=== PATIENT | female | born 1985 | race Caucasian/White ===

== ENCOUNTER 2018-11-26 13:30 | Inpatient (IN) | payer OTHER ==
[2018-12-01 15:01] VITALS: BMI 43.0
[2018-12-03] MEDS ORDERED: BUPIVACAINE HCL/PF 0.5% (5MG/ML) 10 ML VIAL ONE (07:23)
[2018-12-03] MEDS ORDERED: MIDAZOLAM HCL 2 MG/2 ML SINGLE DOSE VIAL ONE ×3 (07:37→07:45)
[2018-12-03] MEDS ORDERED: DEXAMETHASONE SOD PHOSPHATE/PF 10 MG/ML SDV ONE (07:38)
[2018-12-03] MEDS ORDERED: BUPIVACAINE HCL/PF 0.25% (2.5MG/ML) 10 ML VIAL ONE (07:38)
--- NOTE | 2018-12-03 07:43 | HP ---
History & Physical Update - History History: No Change - Physical Physical: No Change - Assessment Assessment: No Change - Plan Plan: No Change (Full H&P in chart from 11/29/18)
[2018-12-03] MEDS ORDERED: ceFAZolin SODIUM 1 GM VIAL ONE (07:44)
[2018-12-03] MEDS ORDERED: fentaNYL CITRATE 250 MCG/5 ML VIAL ONE (07:44)
[2018-12-03] MEDS ORDERED: ROCURONIUM BROMIDE 50 MG/5 ML VIAL ONE ×2 (07:45→09:01)
[2018-12-03] MEDS ORDERED: SUCCINYLCHOLINE CHLORIDE 200 MG/10 ML VIAL ONE (07:45)
[2018-12-03] MEDS ORDERED: PROPOFOL 20 ML ONE ×2 (07:45)
[2018-12-03] MEDS ORDERED: ONDANSETRON 4 MG/2 ML VIAL IVPUSH PRN ×2 (08:09→10:14)
[2018-12-03] MEDS ORDERED: LACTATED RINGERS SOLUTION 1,000 ML IV SCH (08:15)
[2018-12-03] MEDS ORDERED: ceFAZolin SODIUM 1 GM VIAL IVPB ONE (08:20)
[2018-12-03] MEDS ORDERED: NEOSTIGMINE METHYLSULFATE 0.5 MG/ML - 10 ML MDV ONE (10:06)
[2018-12-03] MEDS ORDERED: GLYCOPYRROLATE 0.2 MG/1 ML VIAL ONE (10:06)
[2018-12-03] MEDS ORDERED: BUPIVACAINE HCL/PF (5 MG/ML) 30 ML VIAL IJ ONE (10:08)
--- NOTE | 2018-12-03 10:20 | OP ---
Operative Note - Note: Operative Date: 12/03/18 Pre-Operative Diagnosis: Morbid Obesity. Asthma Operation: Laparoscopic Vertical SLeeve Gastrectomy. Diagnostic Laparoscopy Findings: Sleeve Gastrectomy performed with #[address] along lesser curve of stomach Post-Operative Diagnosis: Same as Pre-op Surgeon: Venu Trejo Hvac Specialist: Robby Celaya Anesthesia: General Specimens Removed: Greater curve of stomach Estimated Blood Loss (mls): 50 Operative Report Dictated: Yes
[2018-12-03] MEDS: SODIUM CHLORIDE 1,000 ML IV SCH ×2 (10:30→18:12)
[2018-12-03] MEDS ORDERED: METOCLOPRAMIDE HCL INJECTION 10 MG/2 ML VIAL IVPUSH SCH (10:30)
--- NOTE | 2018-12-03 10:45 | SURG ---
Surgery Supervisor [employer] Note Supervisor [employer]: Robby Celaya PA-C Date of Service: 12/03/18 Diagnosis: Morbid obesity due to excess calories Procedure: Laproscopic sleeve gastrectomy I was present for the entirety of the operative procedure. For further detail, please refer to operative report. Visit type - Case Type Case Type: Scheduled - Emergency Emergency Visit: No - New patient This patient is new to me today: Yes Date on this admission: 12/03/18
--- NOTE | 2018-12-03 11:06 | OP ---
DATE OF OPERATION: 12/03/2018 PREOPERATIVE DIAGNOSIS: 1. Morbid obesity. 2. Asthma. POSTOPERATIVE DIAGNOSIS: 1. Morbid obesity. 2. Asthma. PROCEDURE PERFORMED: 1. Laparoscopic vertical sleeve gastrectomy. 2. Diagnostic laparoscopy. OPERATING SURGEON: Venu Trejo MD BINDING NICKER: Robby Celaya PA-C ANESTHESIA: General. OPERATIVE PROCEDURE: The patient was brought into the operating room, placed on the OR table in the supine position. All precautions were taken initially including padding for the back and the feet, and Venodyne boots were placed on both lower extremities. At that point, the abdomen was prepped and draped in the usual manner. A Veress needle was placed in the left upper quadrant, and a pneumoperitoneum was established. A No. 12 bladeless trocar was placed in the left upper quadrant. Through that trocar, a laparoscopic camera was placed. Under direct vision, a No. 15 bladeless trocar was placed in the midline in a supraumbilical position followed by a No. 5 bladeless trocar in the right upper quadrant and a No. 5 bladeless trocar below the left costal margin. A Drew Liver Retractor was then placed in the epigastrium to retract the left lobe of the liver. The patient was then placed in 20-degree reverse Trendelenburg position by Anesthesia. The pylorus was noted on the distal stomach, and from there, 6 cm were measured proximally on the greater curve. At that point, the operating surgeon lifted the stomach towards the anterior abdominal wall as the medical assistant cardiology surgeon retracted the gastrocolic ligament inferiorly. The LigaSure device was used to dissect the gastrocolic ligament off the greater curve of the stomach. This continued in a superior and vertical direction along the greater curve until the final short gastric vessel between the superior pole spleen and the proximal fundus was divided. At this juncture, Anesthesia advanced a No. 40 bougie along the lesser curve. With the bougie held along the lesser curve, a series of avelino was performed, with the first two being black-load avelino, 6 cm in length, along the bougie. This was followed by a series of purple-load avelino also along the bougie, until the final stapler was fired in the left upper quadrant. The greater curve was now completely detached from the lesser curve. It should be noted that prior to final avelino, both the anterior and posterior la were checked that they were equal and in the area of esophagogastric junction, approximately 1 to 1.5 cm of serosa remained on the anterior and posterior surfaces. At this juncture, saline was placed around the staple line, and Anesthesia inserted air into the bougie, which showed the entire stomach distended to the pylorus, no obstruction and no leaks were noted. At this juncture, the saline was suctioned free. Surgicel was placed in the left upper quadrant by the area of the spleen for any raw surfaces, and the resected stomach was removed with a No. 15 trocar site and sent off the field as specimen to Pathology. The No. 15 trocar site was now closed with endo-closure device to prevent internal hernia event bleeding. Under direct vision, all trocars were removed and pneumoperitoneum was released. All trocar sites received 0.25% Marcaine. The 12 and 15 trocars were closed with 3-0 Vicryl in the subcutaneous tissue, and all trocars were closed with 4-0 Biosyn in subcuticular fashion. Dressings were applied. Patient awoke from anesthesia and transferred out of the operating room to the recovery room in stable condition. ANESTHESIA: General. OPERATING SURGEON: Venu Trejo MD BINDING NICKER: Robby Celaya PA-C EXPECTED BLOOD LOSS: 50 mL. Patient transferred to the recovery room in stable condition. Tori [id number]
[2018-12-03 11:13] LABS: HEMATOCRIT 38.2 % (32.4-45.2); HEMOGLOBIN 12.7 GM/dL (10.7-15.3); MCH 30.8 pg (25.7-33.7); MCHC 33.2 g/dl (32.0-36.0); MEAN CELL VOLUME 92.9 fl (80-96); MEAN PLT VOLUME 8.3 fl (7.5-11.1); PLATELET COUNT 328 K/MM3 (134-434); RBC 4.11 M/mm3 (3.60-5.2); RDW 14.6 % (11.6-15.6); WHITE BLOOD COUNT 15.1 K/mm3 (4.0-10.0)
[2018-12-03 11:56] LABS: ALBUMIN 3.3 g/dl (3.4-5.0); ALK PHOS 71 U/L (45-117); ANION GAP 6 MMOL/L (8-16); BILIRUBIN,TOTAL 0.5 mg/dL (0.2-1); BLOOD UREA NITROGEN 10 mg/dL (7-18); CALCIUM 8.4 mg/dL (8.5-10.1); CHLORIDE 102 mmol/L (98-107); CO2 27 mmol/L (21-32); CREATININE 0.8 mg/dL (0.55-1.3); GLUCOSE,RANDOM 170 mg/dL (74-106); POTASSIUM 4.5 mmol/L (3.5-5.1); SGOT/AST 28 U/L (15-37); SGPT/ALT 33 U/L (13-61); SODIUM 135 mmol/L (136-145); TOT PROT 7.8 g/dl (6.4-8.2)
[2018-12-03] MEDS: METOCLOPRAMIDE HCL INJECTION 10 MG/2 ML VIAL IVPUSH SCH ×2 (14:59→21:16)
[2018-12-03] MEDS: MORPHINE SULFATE 2 MG/ML VIAL IVPUSH PRN ×2 (14:59→20:32)
[2018-12-03] MEDS: ENOXAPARIN NA (PORCINE) 40 MG/0.4 ML DISP.SYRIN SQ SCH (21:17)
[2018-12-03] MEDS: FAMOTIDINE 20 MG/50 ML IVPB 20 MG/50 ML MG IVPB SCH (21:19)
[2018-12-04] MEDS: MORPHINE SULFATE 2 MG/ML VIAL IVPUSH PRN ×4 (01:18→11:30)
[2018-12-04] MEDS: METOCLOPRAMIDE HCL INJECTION 10 MG/2 ML VIAL IVPUSH SCH ×2 (03:49→09:07)
[2018-12-04 07:13] LABS: HEMATOCRIT 35.5 % (32.4-45.2); HEMOGLOBIN 11.9 GM/dL (10.7-15.3); MCHC 33.4 g/dl (32.0-36.0); MEAN CELL VOLUME 92.7 fl (80-96); MEAN PLT VOLUME 8.4 fl (7.5-11.1); PLATELET COUNT 320 K/MM3 (134-434); RBC 3.83 M/mm3 (3.60-5.2); RDW 14.3 % (11.6-15.6); WHITE BLOOD COUNT 14.7 K/mm3 (4.0-10.0)
[2018-12-04 07:23] LABS: ALK PHOS 64 U/L (45-117); ANION GAP 6 MMOL/L (8-16); BILIRUBIN,TOTAL 0.6 mg/dL (0.2-1); BLOOD UREA NITROGEN 9 mg/dL (7-18); CALCIUM 7.9 mg/dL (8.5-10.1); CHLORIDE 106 mmol/L (98-107); CO2 25 mmol/L (21-32); CREATININE 0.7 mg/dL (0.55-1.3); GLUCOSE,RANDOM 74 mg/dL (74-106); POTASSIUM 3.7 mmol/L (3.5-5.1); SGOT/AST 25 U/L (15-37); SGPT/ALT 25 U/L (13-61); SODIUM 137 mmol/L (136-145); TOT PROT 7.4 g/dl (6.4-8.2)
[2018-12-04] MEDS: FAMOTIDINE 20 MG/50 ML IVPB 20 MG/50 ML MG IVPB SCH (09:07)
[2018-12-04] MEDS: SODIUM CHLORIDE 1,000 ML IV SCH ×2 (09:07→10:15)
[2018-12-04] MEDS: ENOXAPARIN NA (PORCINE) 40 MG/0.4 ML DISP.SYRIN SQ SCH (09:07)
--- NOTE | 2018-12-04 09:42 | PN ---
Progress Note (short form) - Note Progress Note: Post anesthesia note, POD#1. S/P Gastric sleeve under GA. Pat seen and examined. VSS. No apparent post anesthesia complications. signed off.
[2018-12-04 10:38] VITALS: BP 126/72; PULSE 71; TEMP 98.4
--- NOTE | 2018-12-04 13:05 | PROC ---
Procedure Note Procedure: POD#1 Afebrile; VSS P-58-71 BP-126/72 Pt ambulating well Tolerating PO clear liquids- 2 oz PO TID No N/V UGI- no leak, no obstruction WBC-14.7 H/H-11.9/35.5 P- D/C pt home PO clear liquids- 2 oz PO 4-5 times today, advance to 3 oz tomorrow F/U with Bariatrics in 5 days
[2018-12-04] MEDS ORDERED: ACETAMINOPHEN 325 MG TABLET (FP) PO PRN (13:06)
[2018-12-04] MEDS ORDERED: oxyCODONE HCL 5 MG TABLET PO PRN (13:06)
[2018-12-04] MEDS ORDERED: SODIUM CHLORIDE 1,000 ML IV SCH (13:15)
--- NOTE | 2018-12-04 14:19 | DS ---
DATE OF ADMISSION: 12/03/2018 DATE OF DISCHARGE: 12/04/2018 HISTORY OF PRESENT ILLNESS/HOSPITAL COURSE: The patient is a 33-year-old woman with a history of morbid obesity for many years despite multiple attempts at dietary weight loss. She was admitted to [facility] for elective sleeve gastrectomy surgery on December 03, 2018. The details of the operative procedure are described in the operative note of that day. Postoperatively, the patient was sent to recovery room where she was stabilized and sent to the 4th floor on telemetry unit monitoring. The patient was stable overnight, had no nausea and vomiting recorded. On the morning of December 04, 2018, she was sent to Radiology where upper GI Gastrografin swallow showed no signs of leaks from the staple line and no extravasation and no signs of obstruction. The patient returned to her room where she received 2 ounces of clear liquids and tolerated it well. The patient's labs were normal the morning after surgery with a hemoglobin of 11.9 and hematocrit 35.5. The patient is ambulating well without any signs of dizziness or difficulty walking. She was given full instructions, and the patient scheduled to be discharged home today on December 04, 2018, with instructions to follow up with the bariatric service on December 09, 2018. CAITLYN CAZARES M.D. [id number]
--- NOTE | 2018-12-06 16:26 | PATH ---
Surgical Pathology Report Patient Name: KIA CHAPA [facility]. Rec. #: [id number] /Age/Gender: 1985 (Age: 33) / F Account: [id number] Location: 4 W TELEMETRY U Taken: 12/03/2018 Received: 12/03/2018 Reported: 12/06/2018 Physicians: Venu Trejo M.D. Specimen(s) Received GREATER CURVATURE STOMACH Clinical History Morbid obesity Final Diagnosis STOMACH, GREATER CURVATURE, LAPAROSCOPIC VERTICAL SLEEVE GASTRECTOMY: PORTION OF STOMACH WITH MILD TO MODERATE CHRONIC GASTRITIS. IMMUNOHISTOCHEMICAL STAIN FOR H. PYLORI IS NEGATIVE. Electronically Signed Amy Munguia M.D. Gross Description Received in formalin, labeled "greater curvature of stomach," is a 70 gram, 15.5 x 3.5 x 2.5 cm. portion of stomach with a stapled margin of resection. The serosa is sim-reid with minimal attached fat. The mucosa is sim-pink with normal folds. No mucosal masses are identified. Occupational Safety And Health Manager sections are submitted in one cassette. /12/03/[address] [facility]12/03/2018
== END 2018-12-04 14:00 | disposition home or self-care (01) | DRG 621 ==
LOC: JSAMEDAYSX 12-03 06:10 → J4W 12-03 14:12
PROVIDERS: ADMIT Surgery; ATTEND Surgery
PROC: 0DB64Z3 Excision of Stomach, Percutaneous Endoscopic Approach, Vertical (ICD-10-PCS; principal; 2018-12-03 08:00)
DX: E66.01 Morbid (severe) obesity due to excess calories (principal); Z68.41 Body mass index [BMI] 40.0-44.9, adult; J45.909 Unspecified asthma, uncomplicated
CPT/HCPCS: 36415; 74241-TC-FY; 80053; 84703; 85027; 86850; 86900; 86901; 88307-TC; 94760; J7030